=== PATIENT | female | born 1960 | race African-American/Black ===

== ENCOUNTER → 2022-04-26 | Outpatient (CLI) | payer MEDICAID ==
[~2022-04-26] MED LIST: DIGO0.2570; FLUT500M6; GLIP-218; IBUP800T27; IPRIH; LISI40TA11; METH500T22; OMEPRAZOLE DR 20 MG CAPSULE; OXYCODONE HCL 30 MG TABLET; WARF3TAB22
== END | disposition home or self-care (01) ==
LOC: Rad HDHVI 14:04
PROVIDERS: ATTEND Internal Medicine Cardiovascular Disease
DX: Z01.818 Encounter for other preprocedural examination (principal); I08.8 Other rheumatic multiple valve diseases
CPT/HCPCS: 93306

== ENCOUNTER → 2022-04-27 | Outpatient (CLI) | payer MEDICAID ==
[~2022-04-27] VITALS: Ht 160 cm; Wt 73.0 kg
[~2022-04-27] MED LIST changes: +ADENOSINE 61 MG in GIVE UN-DILUTED 0 ML IV ONE; +ADENOSINE 90 MG/30 ML INJ IV ONE
== END | disposition home or self-care (01) ==
LOC: Rad HDHVI 08:02
PROVIDERS: ATTEND Internal Medicine Cardiovascular Disease
DX: Z01.810 Encounter for preprocedural cardiovascular examination (principal); I10 Essential (primary) hypertension; I25.2 Old myocardial infarction
CPT/HCPCS: 78452; 93005; 96374; 96375; A9500; J0153

== ENCOUNTER → 2022-04-28 | Outpatient (CLI) | payer MEDICAID ==
[~2022-04-28] MED LIST changes: -ADENOSINE 61 MG in GIVE UN-DILUTED 0 ML IV ONE; -ADENOSINE 90 MG/30 ML INJ IV ONE
== END | disposition home or self-care (01) ==
LOC: Rad HDHVI 08:44
PROVIDERS: ATTEND Internal Medicine Cardiovascular Disease
DX: R06.02 Shortness of breath (principal); I70.0 Atherosclerosis of aorta; M47.814 Spondylosis without myelopathy or radiculopathy, thoracic region
CPT/HCPCS: 71046

== ENCOUNTER → 2022-09-18 | Outpatient (CLI) | payer MEDICAID ==
[~2022-09-18] MED LIST changes: +DOCU-94 PO; +ENO30SY SUBCUT; +ENO40SY SC; +GABA400C PO; +IBUP-1456; -IBUP800T27; -LISI40TA11; +LISI40TA16; +LOSA100T58 PO; +METH-1181; -METH500T22; +OXY5T PO; +WARF-111; +WARF-111 PO; +WARF-112 PO; -WARF3TAB22
[2022-09-18 10:35] VITALS: BP 157/89
[2022-09-18 10:51] VITALS: BP 166/67
== END | disposition home or self-care (01) ==
LOC: Rad HDHVI 10:11
PROVIDERS: ATTEND Internal Medicine Cardiovascular Disease
DX: Z01.818 Encounter for other preprocedural examination (principal); R94.31 Abnormal electrocardiogram [ECG] [EKG]; I51.7 Cardiomegaly; I42.0 Dilated cardiomyopathy; R06.02 Shortness of breath; R07.89 Other chest pain
CPT/HCPCS: 71046; 93005; G0463

== ENCOUNTER 2022-09-21 07:34 | Day surgery (SDC) | payer MEDICAID ==
[2022-09-18 13:24] LABS: Basophils # (auto) 0 10 ^3/uL (0-0.2); Basophils % (auto) 0.5 % (0.0-2.0); Eosinophils # (auto) 0.1 10 ^3/uL (0-0.8); Hematocrit 40.2 % (36.0-46.0); Hemoglobin 13.2 g/dL (12.2-16.2); Lymphocytes # (auto) 2.2 10 ^3/uL (0.4-5.4); Lymphocytes % (auto) 39.3 % (10.0-50.0); Mean Corpuscular Hemoglobin 30.7 pg (28.0-32.0); Mean Corpuscular Hgb Conc. 32.8 g/dL (32.0-36.0); Mean Corpuscular Volume 93.6 fL (80.0-100.0); Monocytes # (auto) 0.4 10 ^3/uL (0-1.3); Monocytes % (auto) 7.6 % (0.0-12.0); Neutrophils # (auto) 2.8 10 ^3/uL (1.6-8.6); Neutrophils % (auto) 50.6 % (37.0-80.0); Nucleated Red Blood Cells % 0.1 %; Red Cell Distribution Width 14.3 % (11.8-14.3); White Blood Cell 5.6 10^3/uL (4.4-10.8)
[2022-09-18 13:42] LABS: INR 1.11 (0.9-1.15); Partial Thromboplastin Time 35.4 SEC (24.5-34.5)
[2022-09-18 13:58] LABS: Potassium 3.9 mmol/L (3.5-5.1)
[2022-09-18 14:03] LABS: BUN/Creatinine Ratio 14.6 (10.0-20.0); Calcium 9.6 mg/dL (8.5-10.1)
[2022-09-21] VITALS (11 sets, daily range): BP systolic 158–196; BP diastolic 103–163
[~2022-09-21] VITALS: Ht 160 cm; Wt 74.5 kg
[~2022-09-21 07:34] MED LIST changes: -DIGO0.2570; -FLUT500M6; -GLIP-218; -IBUP-1456; -IPRIH; -LISI40TA16; -METH-1181; -OMEPRAZOLE DR 20 MG CAPSULE; -OXYCODONE HCL 30 MG TABLET; -WARF-111
[2022-09-21] MEDS ORDERED: MIDAZOLAM HCL 2MG/2ML 2ml VIAL (1mg/ml) ONE (10:09)
[2022-09-21] MEDS ORDERED: SODIUM CHL 0.9% 50 ML ONE (10:09)
[2022-09-21] MEDS ORDERED: IOHEXOL 350 MG/ML 100ML IJ ONE (10:09)
[2022-09-21] MEDS ORDERED: LIDOCAINE 2%HCL (LOCAL ANESTH.) INJ 20ML MDV ONE ×2 (10:09→10:32)
[2022-09-21] MEDS ORDERED: ANGIOMAX 250 MG VIAL IV ONE (10:09)
[2022-09-21] MEDS ORDERED: fentaNYL CITRATE 100 MCG/2 ML VL ONE (10:09)
[2022-09-21] MEDS ORDERED: CLOPIDOGREL 300 MG TAB ONE (11:01)
[2022-09-21] MEDS ORDERED: HYDROcodone-ACET 10/325MG TAB PO ONE (11:15)
[2022-09-21] MEDS ORDERED: KETOROLAC TROMETH 30 MG/ML 1ML VIAL IV ONE (13:00)
[2022-09-21] MEDS ORDERED: KETOROLAC TROMETH 30 MG/ML 1ML VIAL ONE (13:09)
[2022-09-21] MEDS ORDERED: ONDANSETRON HCL 4 MG/2 ML VIAL IM ONE (13:45)
[2022-09-21] MEDS ORDERED: ONDANSETRON HCL 4 MG/2 ML VIAL IV ONE (14:15)
[2022-09-21] MEDS ORDERED: oxyCODONE HCL 5MG TAB PO PRN (14:30)
== END 2022-09-21 15:10 | disposition home or self-care (01) ==
LOC: CATH 07:34
PROVIDERS: ATTEND Internal Medicine Cardiovascular Disease
DX: I25.10 Atherosclerotic heart disease of native coronary artery without angina pectoris (principal); I27.20 Pulmonary hypertension, unspecified; I11.0 Hypertensive heart disease with heart failure; I50.1 Left ventricular failure, unspecified; Z95.2 Presence of prosthetic heart valve; Z86.73 Personal history of transient ischemic attack (TIA), and cerebral infarction without residual deficits; I34.0 Nonrheumatic mitral (valve) insufficiency; R06.02 Shortness of breath; I25.2 Old myocardial infarction; R07.89 Other chest pain; Z79.899 Other long term (current) drug therapy; Z79.82 Long term (current) use of aspirin; Z79.01 Long term (current) use of anticoagulants; Z98.890 Other specified postprocedural states
CPT/HCPCS: 36415; 80048; 85025; 85610; 85730; 93460; 93571; C1725; C1757; C1769; C1874; C1887; C1894; C9600; J0583; J1644; J1885; J2250; J2405; J3010; J7030; Q9967; 99152; 99153

== ENCOUNTER → 2023-01-15 | Outpatient (CLI) | payer MEDICAID ==
[~2023-01-15] MED LIST changes: +ALBU108A5 IN; +ATOR10TA52 PO; +CLOP75TA28 PO; +LISI10TA34 PO; +OLME40TA9 PO; +OMEP20TA PO
[2023-01-15 09:29] VITALS: BP 140/78; PULSE 77; RESP 18; O2SAT 99
[2023-01-15 09:46] VITALS: BP 129/75; PULSE 73; RESP 18; O2SAT 99
== END | disposition home or self-care (01) ==
LOC: CHF HDHVI 09:09
PROVIDERS: ATTEND Internal Medicine Cardiovascular Disease
DX: Z01.818 Encounter for other preprocedural examination (principal)
CPT/HCPCS: 93005; G0463

== ENCOUNTER 2023-01-18 06:54 | Day surgery (SDC) | payer MEDICAID ==
[2023-01-15 10:43] LABS: Basophils # (auto) 0 10 ^3/uL (0-0.2); Basophils % (auto) 0.5 % (0.0-2.0); Eosinophils # (auto) 0.1 10 ^3/uL (0-0.8); Eosinophils % (auto) 1.3 % (0.0-7.0); Hematocrit 30.4 % (36.0-46.0); Lymphocytes # (auto) 2.3 10 ^3/uL (0.4-5.4); Lymphocytes % (auto) 28.7 % (10.0-50.0); Mean Corpuscular Hemoglobin 29.8 pg (28.0-32.0); Mean Corpuscular Hgb Conc. 32.8 g/dL (32.0-36.0); Mean Corpuscular Volume 90.7 fL (80.0-100.0); Monocytes # (auto) 0.6 10 ^3/uL (0-1.3); Neutrophils % (auto) 62.5 % (37.0-80.0); Red Blood Cells 3.35 10^6/uL (4.0-5.20); Red Cell Distribution Width 15.1 % (11.8-14.3); White Blood Cell 7.9 10^3/uL (4.4-10.8)
[2023-01-15 11:39] LABS: Anion Gap 5 (5-15); Carbon Dioxide 29 mmol/L (20-30); Chloride 103 mmol/L (98-107); Potassium 4.3 mmol/L (3.5-5.1); Sodium 137 mmol/L (136-145)
[2023-01-15 11:40] LABS: Calcium 9.8 mg/dL (8.7-10.4)
[2023-01-15 11:45] LABS: BUN/Creatinine Ratio 15.9 (10.0-20.0); Blood Urea Nitrogen 14 mg/dL (9-23); Glucose 98 mg/dL (74-106)
[2023-01-15 12:00] LABS: INR 2.1 (0.9-1.15); Partial Thromboplastin Time 38.2 SEC (24.5-34.5)
[~2023-01-18] VITALS: Ht 160 cm; Wt 73.9 kg
[2023-01-18] VITALS (9 sets, daily range): BP systolic 98–142; BP diastolic 50–92; PULSE 61–88; RESP 12–23; TEMP 97.6; O2SAT 88–100
[~2023-01-18 06:54] MED LIST changes: -ENO30SY SUBCUT; -ENO40SY SC; -LISI10TA34 PO; -LOSA100T58 PO
[2023-01-18] MEDS ORDERED: IOHEXOL 350 MG/ML 100ML IJ ONE (07:55)
[2023-01-18] MEDS ORDERED: LIDOCAINE 2%HCL (LOCAL ANESTH.) INJ 20ML MDV ONE (07:55)
[2023-01-18] MEDS ORDERED: IODIXANOL 320MG/ML 100ML BTL IV ONE (07:55)
[2023-01-18] MEDS ORDERED: ANGIOMAX 250 MG VIAL IV ONE (08:21)
[2023-01-18] MEDS ORDERED: fentaNYL CITRATE 100 MCG/2 ML VL ONE (08:22)
[2023-01-18] MEDS ORDERED: MIDAZOLAM HCL 2MG/2ML 2ml VIAL (1mg/ml) ONE (08:22)
[2023-01-18] MEDS ORDERED: SODIUM CHL 0.9% 0 ML ONE (08:23)
[2023-01-18] MEDS ORDERED: ONDANSETRON HCL 4 MG/2 ML VIAL IV ONE (10:23)
[2023-01-18] MEDS ORDERED: ONDANSETRON HCL 4 MG/2 ML VIAL ONE (10:24)
== END 2023-01-18 13:15 | disposition home or self-care (01) ==
LOC: CATH 06:54
PROVIDERS: ATTEND Internal Medicine Cardiovascular Disease
DX: R07.89 Other chest pain (principal); I73.9 Peripheral vascular disease, unspecified; I50.1 Left ventricular failure, unspecified
CPT/HCPCS: 36415; 80048; 85025; 85610; 85730; 93456; 93567; C1757; C1894; J1644; J2250; J2405; J3010; Q9967; 99152

== ENCOUNTER → 2023-03-07 | Outpatient (CLI) | payer MEDICAID ==
[~2023-03-07] MED LIST changes: +IOHEXOL 350 MG/ML 100ML IJ ONE; +LIDOCAINE 2%HCL (LOCAL ANESTH.) INJ 20ML MDV ONE; +MIDAZOLAM HCL 2MG/2ML 2ml VIAL (1mg/ml) ONE; +POTA-220 PO; +VANCOMYCIN 1GM/200ML 200 ML IV ONE; +VANCOMYCIN HCL 1000 MG VL ONE; +fentaNYL CITRATE 100 MCG/2 ML VL ONE
[2023-03-07 10:20] VITALS: BP 185/87; PULSE 83; RESP 18; O2SAT 97
[2023-03-07 10:33] VITALS: BP 177/81; PULSE 81; RESP 18; O2SAT 97
== END | disposition home or self-care (01) ==
LOC: CHF HDHVI 10:08
PROVIDERS: ATTEND Internal Medicine Cardiovascular Disease
DX: Z01.818 Encounter for other preprocedural examination (principal); I25.10 Atherosclerotic heart disease of native coronary artery without angina pectoris; I50.23 Acute on chronic systolic (congestive) heart failure; I25.5 Ischemic cardiomyopathy
CPT/HCPCS: 93005; G0463

== ENCOUNTER 2023-03-08 08:13 | Day surgery (SDC) | payer MEDICAID ==
[2023-03-07 12:13] LABS: Basophils # (auto) 0 10 ^3/uL (0-0.2); Basophils % (auto) 0.5 % (0.0-2.0); Eosinophils # (auto) 0.1 10 ^3/uL (0-0.8); Hemoglobin 9.2 g/dL (12.2-16.2); Monocytes # (auto) 0.5 10 ^3/uL (0-1.3); Neutrophils # (auto) 3.5 10 ^3/uL (1.6-8.6)
[2023-03-07 12:16] LABS: Eosinophils % (auto) 2.1 % (0.0-7.0); Hematocrit 29.7 % (36.0-46.0); Lymphocytes # (auto) 2.3 10 ^3/uL (0.4-5.4); Lymphocytes % (auto) 35.2 % (10.0-50.0); Mean Corpuscular Hemoglobin 23.9 pg (28.0-32.0); Mean Corpuscular Volume 77.1 fL (80.0-100.0); Monocytes % (auto) 7.8 % (0.0-12.0); Neutrophils % (auto) 54.4 % (37.0-80.0); Nucleated Red Blood Cells % 0.1 %; Red Blood Cells 3.85 10^6/uL (4.0-5.20); White Blood Cell 6.4 10^3/uL (4.4-10.8)
[2023-03-07 12:18] LABS: Partial Thromboplastin Time 26.2 SEC (24.5-34.5); Prothrombin Time 10.5 sec (9.3-11.8)
[2023-03-07 12:26] LABS: Red Cell Distribution Width 20.6 % (11.8-14.3)
[2023-03-07 12:39] LABS: Chloride 105 mmol/L (98-107); Potassium 3.8 mmol/L (3.5-5.1); Sodium 138 mmol/L (136-145)
[2023-03-07 12:40] LABS: Anion Gap 4 (5-15); Calcium 9.9 mg/dL (8.7-10.4); Carbon Dioxide 29 mmol/L (20-30)
[2023-03-07 12:45] LABS: BUN/Creatinine Ratio 10.7 (10.0-20.0); Blood Urea Nitrogen 8 mg/dL (9-23); Glucose 95 mg/dL (74-106)
[2023-03-08] VITALS (7 sets, daily range): BP systolic 155–185; BP diastolic 79–110; PULSE 86–109; RESP 15–19; TEMP 98.4; O2SAT 93–96
[~2023-03-08] VITALS: Ht 160 cm; Wt 72.6 kg
[~2023-03-08 08:13] MED LIST changes: -IOHEXOL 350 MG/ML 100ML IJ ONE; -LIDOCAINE 2%HCL (LOCAL ANESTH.) INJ 20ML MDV ONE; -MIDAZOLAM HCL 2MG/2ML 2ml VIAL (1mg/ml) ONE; -VANCOMYCIN 1GM/200ML 200 ML IV ONE; -VANCOMYCIN HCL 1000 MG VL ONE; -WARF-112 PO; -fentaNYL CITRATE 100 MCG/2 ML VL ONE
[2023-03-08] MEDS ORDERED: VANCOMYCIN 1GM/200ML 200 ML IV ONE (08:45)
[2023-03-08] MEDS ORDERED: HYDROmorphone HCL 2 MG/ML VL/or syr ONE (13:53)
[2023-03-08] MEDS ORDERED: diphenhdrAMINE HCL 50 MG/1 ML VL ONE (13:55)
== END 2023-03-08 17:00 | disposition home or self-care (01) ==
LOC: CATH 08:13
PROVIDERS: ATTEND Internal Medicine Cardiovascular Disease
DX: I42.0 Dilated cardiomyopathy (principal); I11.0 Hypertensive heart disease with heart failure; I50.22 Chronic systolic (congestive) heart failure; E66.01 Morbid (severe) obesity due to excess calories; Z79.01 Long term (current) use of anticoagulants; Z95.2 Presence of prosthetic heart valve
CPT/HCPCS: 33249; 36415; 71045; 80048; 85025; 85610; 85730; C1894; C1895; C1898; J1170; J1200; J1644; J2250; J3010; J3370; Q9967; 99152

== ENCOUNTER → 2023-05-14 | Outpatient (CLI) | payer MEDICAID | END | disposition home or self-care (01) | LOC: Rad HDHVI 08:07 | PROVIDERS: ATTEND Internal Medicine Cardiovascular Disease | DX: I51.7 Cardiomegaly (principal); R07.89 Other chest pain; R06.02 Shortness of breath | CPT/HCPCS: 93306 ==

== ENCOUNTER → 2024-09-24 | Outpatient (CLI) | payer OTHER, MEDICAID ==
--- NOTE | 2024-10-02 14:17 | DVH ---
CLINICAL INFORMATION: FAILED TOTAL LEFT KNEE REPLACEMENT. TECHNIQUE: Following the intravenous administration of 24.2 mCi technetium 99m-MDP, 3-phase bone sca n was performed. Immediate flow images of both knees were obtained in the anterior and posterior proj ections. Blood pool images were obtained in the anterior, posterior, and both lateral projections. De layed images were obtained in the anterior, posterior, and both lateral projections. COMPARISON: None FINDINGS: There is symmetric uptake in both lower extremities and around both knees.bilaterally on th e immediate flow images. There is also fairly symmetric uptake bilaterally on the blood pool images. Delayed images demonstrate symmetric areas of nonspecific increased uptake adjacent to both prosthese s IMPRESSION: Symmetric areas of increased uptake adjacent to the bilateral knee prostheses the delayed images. Fin dings are nonspecific and may be seen normally, particularly in the 1st few years after knee replacem ent surgery. No abnormal asymmetric uptake is seen on the immediate flow or blood pool phases.
== END | disposition home or self-care (01) ==
LOC: XYW 08:34
PROVIDERS: ATTEND Orthopaedic Surgery Adult Reconstructive Orthopaedic Surgery
DX: T84.093A Other mechanical complication of internal left knee prosthesis, initial encounter (principal); Y79.2 Prosthetic and other implants, materials and accessory orthopedic devices associated with adverse incidents; Y92.89 Other specified places as the place of occurrence of the external cause
CPT/HCPCS: 78315; A9503